=== PATIENT | female | born 1970 | race Two or more races ===

== ENCOUNTER 2020-06-21 06:46 | Day surgery (SDC) | payer OTHER ==
[~2020-06-21 06:46] MED LIST: COZAAR50 MG PO; DITROPAN XL10 MG; TENORMIN50 M1 PO
== END 2020-06-21 22:15 | disposition home or self-care (01) ==
LOC: CIR.AMB 06:46
PROVIDERS: ATTEND Orthopaedic Surgery Sports Medicine
DX: M75.102 Unspecified rotator cuff tear or rupture of left shoulder, not specified as traumatic (principal); M75.42 Impingement syndrome of left shoulder; M75.32 Calcific tendinitis of left shoulder; M75.02 Adhesive capsulitis of left shoulder; Z20.822 Contact with and (suspected) exposure to COVID-19